=== PATIENT | female | born 1985 | race Caucasian/White ===

== ENCOUNTER → 2020-05-18 10:20 | Outpatient (CLI) | payer OTHER, SELFPAY ==
--- NOTE | ~2020-05-18 | US_ITS ---
EXAMINATION: US pelvic complete w TV EXAM DATE: 05/18/2020 10:54 INDICATION: Dysmenorrhea. TECHNIQUE: Pelvic transabdominal and transvaginal sonogram was performed. There are multiple graysca le and Doppler images available for interpretation. Comparison is made to prior examination from 07/01. FINDINGS: Uterus measures 7.4 x 3.4 x 3.9 cm, is anteverted and morphologically normal. Endometrial stripe measures 4 mm, within normal limits. There is no free pelvic fluid. Right adnexa: The ovary measures 1.7 x 1.7 x 1.4 cm and is morphologically normal. Ovarian vascular f low confirmed. Left adnexa: The ovary measures 1.7 x 1.7 x 1.2 cm and is morphologically normal. Ovarian vascular fl ow confirmed. IMPRESSION: 1. Unremarkable pelvic ultrasound exam. Reviewed, dictated and finalized at location A.
== END ==
PROVIDERS: PCP Family Medicine; Visit Provider Family Medicine
DX: N94.6 Dysmenorrhea, unspecified (principal)
CPT/HCPCS: 76830; 76856

== ENCOUNTER 2023-04-06 00:46 | Day surgery (SDC) | payer OTHER, SELFPAY ==
[2023-03-31 08:33] VITALS: BMI 21.9
--- NOTE | 2023-03-31 08:38 | PC.NURSE ---
Report to the Outpatient Waiting Room, entrance under the green pavilion located off [facility], at time 0600 on date 04/06/23. Planned Procedure Time: 0730. Time changes happen often and if your time is changed the preop area will call you the afternoon before. - You and your visitor will be asked to self-screen and do not enter if you have any COVID symptoms. - A mask is optional within the hospital at this time. Patients may have clear liquids (water, carbonated beverages, clear teas, apple juice) until 3 hours prior to surgery with a maximum of 20 ounces. - No food from midnight until time of surgery Take the following medications with a SIP of water the morning of surgery: BUPROPION DO NOT STOP ANY OF YOUR OTHER PRESCRIPTION MEDICATIONS PRIOR TO SURGERY ?EXCEPT THE FOLLOWING Medications to discontinue per physician: N/A Date to take last dose: N/A Please no make-up, nail vietnamese, hairspray, perfume, deodorant, or body powder the day of surgery. No jewelry (including any body piercings) or valuables the day of surgery, leave them at home. Please take a shower or bath the night before, or the morning of, surgery with an antibacterial soap. Wear comfortable, loose fitting clothing. - Jewelry must be removed prior to entering the operating room. Rings and piercings that are not removed may be cut off. - The hospital will not accept responsibility for valuables. - Please leave all valuables, including medications, at home the day of surgery. If you are going home after surgery, a licensed transportation driver must drive you home. - NO public transportation without another adult if you receive anesthesia. - We recommend that an adult stay with you for 24 hours following discharge. - We also recommend that you do not drive, make important decision, drink alcoholic beverages, or take any drugs that were not prescribed by your health care provider for at least 24 hours after your discharge time. Follow any additional instructions given to you from your surgeon. If you or anyone in your household have experienced Covid symptoms in the past week, please notify your surgeon or the nurse liaison at the phone number below for possible testing. Telephone instructions given to PT - NAE PICHARDO and asked if any additional questions and then verbalized understanding. Patient advised to call surgeon office or pre surgery nurse liaison [phone] if any additional questions.
[2023-04-06] VITALS (9 sets, daily range): BP systolic 102–127; BP diastolic 59–89; PULSE 87–110; RESP 12–20; TEMP 36.3–36.4; O2SAT 97–100
[2023-04-06] MEDS: LACTATED RINGERS 1,000 ML 30 ML IV CONT ×2 (06:30→08:19)
--- NOTE | 2023-04-06 06:54 | WPDANESEPPF ---
Anes - Initial Pre Proc Eval Procedure: Operation Date: 04/06/23 07:30 Proposed Procedures p Bilateral Breast Augmentation - Gurinder Oh MD Date/Time: 04/06/23 06:54 Surgeon: Gurinder Oh MD Pre Op Diagnosis: micromastia Patient Data Age: 37 Gender: F Height: 1.52 m Weight: 50.8 kg Allergies Allergy/AdvReac Type Severity Reaction Status Date / Time codeine Allergy Unknown Rash Verified 03/31/23 08:32 Home Medications Medication Instructions Recorded Confirmed Type bupropion HCl 150 mg 24 hr tablet, 150 mg PO DAILY 03/31/23 03/31/23 History extended release Patient hx anesthesia problems: none Family hx anesthesia problems: none Results Review: All pre-operative results and documents have been reviewed as part of the pre-operative evaluation. FOR[facility]LY [facility] Social History Social History Smoking status: Never smoker Second hand tobacco smoke exposure: No Alcohol intake: current Drinks per week: 2 Substance use: never Substance use type: does not use Living arrangements: with friend(s) Spiritual care concerns: No Anes - Eval Final PreProcedure Day of Procedure 04/06/23 06:54 Patient weight: normal Heart: regular rate and rhythm Lungs: clear to auscultation Airway: Mallampati scale class II Neurological: alert and oriented Last oral intake: >/= 8 hours ASA classification: II Emergent: no Anesthetic plan: proceed Anesthesia type and monitoring: general LMA and standard monitoring Other findings: scop patch propofol inf Results Review: All pre-operative results and documents have been reviewed as part of the pre-operative evaluation. Informed Consent: The patient's anesthetic plan and its attendant risks and benefits were discussed with the patient/family/POA. Questions were solicited and answers provided to the satisfaction of the patient/family/POA.
[2023-04-06] MEDS: SCOPOLAMINE 1.5 MG PATCH TRANSDERM (07:00)
--- NOTE | 2023-04-06 07:04 | WPDHPUPDATE1 ---
History and Physical Update Update Date/Time: 04/06/23 07:04 History and Physical has been reviewed, including an updated exam of the patient. There are NO changes in the patient's condition. She does like a mustafa upper pole look and understands with her natural anatomy she will NOT have as much of this as she desires. She understands she has asymmetric glandular ptosis and what this means. It was explained that she could have a second stage mastopexy (at her expense) if desired; however, this still will not provide as much upper pole fullness as she would like. Risks, benefits, and alternatives have been discussed and questions answered. Patient agrees to proceed with procedure.
--- NOTE | 2023-04-06 07:05 | P.OP_ITS ---
Procedure Note - Detailed Date of Procedure 04/06/23 Pre-op Diagnosis micromastia Post-op Diagnosis Same Procedure Performed Bilateral Augmentation Mammaplasty Surgeon Gurinder Oh MD Anesthesia General Findings Bilateral Gay Chery SoftTouch 330cc implants Right - REF# [id number] SN [id number] Dual Plane 1 Left - REF# [id number] SN [id number] Dual Plane 2 Description of Procedure She is here today for bilateral breast augmentation. Previously and again today the risks, benefits, alternatives were discussed in extensive detail. I wanted her to be very realistic about the risks involved as well as expectations. She does like a mustafa upper pole look and understands with her natural anatomy she will NOT have as much of this as she desires. She understands she has asymmetric glandular ptosis and what this means. It was explained that she c ould have a second stage mastopexy (at her expense) if desired; however, this still will not provide as much upper pole fullness as she would like. We discussed aftercare and what to monitor for. Made sure answered all of her questions to her satisfaction today and consent was obtained. Marked in the preoperative holding area with their verification. The patient was taken to the operating room placed supine on the operating table. Anesthesia was provided by anesthesiology. A surgical time-out was taken. We cleansed the skin and 1% lidocaine and 0.25% Marcaine with epinephrine was used anesthetize as a field block. She was prepped and draped in a standard sterile fashion. Tegaderm nipple Page were placed. A 15 blade used to make an incision along the inframammary fold. Dissection was continued at 45 degree angle until the chest wall as identified. I incised the pectoralis major along its inferior border and completely released the inferior border leaving the medial border intact. I created a subpectoral pocket in the appropriate dimensions based on our preoperative planning for the implant. I then copiously irrigated with saline solution and verified a strict hemostasis. Next the use a triple antibiotic and Betadine containing solution to irrigate the pocket. I washed my gloves with the triple antibiotic and Betadine solution. We washed the implant immediately upon opening it with this solution and only opened it when we needed it. I used implant funnel and no-touch technique. The implant was introduced into the pocket using the funnel. Having verified positioning of the implant this was closed using 2-0 PDS followed by 3-0 Monocryl in a running subcuticular 4-0 Monocryl followed by tissue glue. Fluffs and surgical bra were placed. Patient was awoke and taken to PACU without difficulty. All instrument sponge counts were correct at the end of the case. Estimated Blood Loss 25 Drains No Packing No Pathology None sent Complications No immediate complications Condition Stable Disposition PACU
[2023-04-06] MEDS: ceFAZolin 2 GM/D5W 50 ML 2 GM/50 ML BAG IVPB (07:22)
[2023-04-06] MEDS: TRANEXAMIC ACID 1,000MG/ISO100 1,000 MG/100 ML BAG 200 MG IVPB (07:37)
[2023-04-06] MEDS: NACL 0.9% IRRIG POUR BOTTLE 900 ML, GENTAMICIN SULFATE INJ 160 MG, ceFAZolin 2 GM, POVI... IRRIGATION (07:58)
[2023-04-06] MEDS: LIDO 1%/EPINEPHRINE 1:100,000 50 ML VIAL 30 ML INFILTRATE (08:08)
[2023-04-06] MEDS: BUPivacaine HCL 0.25% PF 30 ML VIAL INFILTRATE (08:08)
[2023-04-06] MEDS: fentaNYL CITRATE INJ (*CRX) 100 MCG/2 ML VIAL 25 MCG IV PUSH ×4 (08:39→09:05)
[2023-04-06] MEDS: oxyCODONE HCL (*CRX) 5 MG TAB IR PO (09:49)
== END 2023-04-06 10:12 | disposition home or self-care (01) ==
PROVIDERS: PCP Family Medicine; Visit Provider Surgery Plastic and Reconstructive Surgery
PROC: (CPT 19325; principal; 2023-04-06 07:30)
DX: Z41.1 Encounter for cosmetic surgery (principal); N64.82 Hypoplasia of breast
CPT/HCPCS: 19325; A9270; J0690; J1100; J1580; J2250; J2405; J2704; J3010; J7120

== ENCOUNTER 2024-11-06 16:57 | Emergency (ER) | payer SELFPAY ==
--- NOTE | 2024-11-06 17:53 | PC.NURSE ---
call x2 no answer
--- OUTSIDE RECORDS SUMMARY | 2024-11-06 18:13 | XMS_ITS | Clinical Summary ---
Author Organization [facility] Address [address] [place] [address] Phone Care Team Providers Care Engineering Faculty Name Role Phone Murali Barron MD Primary Care Provider [phone] Allergies Active Allergy Reactions Criticality Noted Date Comments Codeine Rash Low 10/22/2009 Medications Evening Bessie Oil 500 mg Oral Cap Take by mouth 3 times daily. Active MULTIVITAMINS (MULTIVITAMIN PO) Take by mouth. Active Active Problems Patient Care Coordination No te Formatting of this note migh t be different from the original. 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 Gender Identity Not on file Sexual Orientation Not on file Last Filed Vital Signs Vital Sign Reading Time Taken Comments Blood Pressure 98/74 10/22/2009 10:28 AM FLAT BED OPERATOR Pulse - - Temperature - - Respiratory Rate - - Oxygen Saturation - - Inhaled Oxygen Concentration - - Weight 48.1 kg (106 lb) 10/22/2009 10:28 AM FLAT BED OPERATOR Height 165.1 cm (5' 5 ) 10/22/2009 10:28 AM FLAT BED OPERATOR Body Mass Index 17.64 10/22/2009 10:28 AM FLAT BED OPERATOR Plan of Treatment Health Maintenance Due Date Last Done Comments PNEUMOCOCCAL VACCINE 0-64 YE ARS (1 of 2 - PCV) 1991 DTAP/TDAP/TD VACCINES (1 - Tdap) 2004 HEPATITIS B VACCINES (1 of 3 - 19+ 3-dose series) 2004 CERVICAL CANCER SCREENING 2015 INFLUENZA VACCINE (#1) 2024 HPV VACCINES Aged Out No longer eligi ble based on patient's age to complete this topic Insurance [employer] OPEN ACCESS Care Teams Engineering Faculty Relationship Specialty Start Date End Date Murali Barron MD [address] [place] [address] [address] [place] [address] PCP - General 10/22/09
--- OUTSIDE RECORDS SUMMARY | 2024-11-06 18:13 | XMS_ITS | Data Portability ---
Author Organization [employer], Main Office Address [address] [place] [address] Assessment No assessment recorded. Plan of Treatment Reminders Order Date Submit Date Provider Last Modified By Organization Details Last Modified Time Details Appointments None recorded. Lab None recorded. Referral None recorded. Procedures None recorded. Surgeries None recorded. Imaging None recorded. Medication Orders bupropion HCl XL 150 mg 24 hr tablet, extended release 2022 023 [email or web address] [facility] [address] [facility], [place], [address], 4 17:28:29 triamcinolo ne acetonide 0.1 % topical cream 2023 024 [facility] [address] [facility], [place], [address], 4 12:44:44 clobetasol 0.05 % scalp solution 2023 024 [facility] [address] [facility], [place], [address], 4 12:44:45 Patient TargetsNo targets recorded. Patient InstructionsNo instructions recorded. Reason for Referral None Reported. Problems Name Problem SNOMED Code Status Onset Date Resolution Date Notes Provider Name and Address Organization Details Recorded Time Mixed anxiety and depressive disorder 575081394 Active 023 DELORES Arita [address] [facility] [address], [place], [address] [facility] [employer] 3 07:58:27 Eczema 63257018 Active 024 Kathy Lebron MD [address], [place], [address], [employer] 4 12:43:20 Depressive disorder 57176179 Active 024 Kathy Lebron MD [address], [place], [address], [employer] 4 12:49:06 Problem Notes None recorded. Medical Equipment None Reported. Allergies Allergen ID Allergen Name Allergen Category Reaction Reaction Severity Criticality Documentation Date Start Date Code Code System Note Provider Name and Address Organization Details Recorded Time 02042 codeine medicatio n rash Not available Not available 12/07/2022 2670 RxNorm Not Available [facility] 3 22:07:24 Medications Name Sig Start Date Stop Date Status Note LastModified by Organization Details LastModified Time carisoprodo l 350 mg tablet TAKE 1 TABLET BY MOUTH EVERY 8 HOURS NEEDED FOR PAIN OR MUSCLE SPASMS 08/28 completed Not Available Not Available Not Available medroxyprog esterone 10 mg tablet TAKE 1 TABLET BY MOUTH ONCE DAILY active Not Available Not Available No t Available ondansetron HCl 4 mg tablet TAKE 1 TABLET BY MOUTH EVERY 6 HOURS NEEDED FOR NAUSEA active Not Available Not Available No t Available triamcinolo ne acetonide 0.1 % topical cream APPLY A THIN LAYER TO THE AFFECTED AREA(S) BY TOPICAL ROUTE 2 TIMES PER DAY active Not Available Not Available No t Available oxycodone-a cetaminophe n 5 mg-325 mg tablet TAKE 1 TABLET BY MOUTH EVERY 6 HOURS NEEDED FOR PAIN active Not Available Not Available No t Available amoxicillin 875 mg tablet Take 1 tablet every 12 hours by oral route for 10 days. 08/28 completed Not Available Not Available Not Available clotrimazol e-betametha sone 1 %-0.05 % topical cream APPLY CREAM TO AFFECTED AREA THREE TIMES DAILY DIRECTED active Not Available Not Available No t Available docusate sodium 100 mg capsule TAKE 1 CAPSULE BY MOUTH TWICE DAILY active Not Available Not Available No t Available methylpredn isolone 4 mg tablets in a dose pack TAKE BY MOUTH DIRECTED ON INSIDE OF PACKAGE active Not Available Not Available No t Available clobetasol 0.05 % scalp solution APPLY TO THE AFFECTED SCALP AREA BY TOPICAL ROUTE 2 TIMES PER DAY IN THE MORNING AND EVENING 2023 active Not Available Not Available Not Avai lable escitalopra m 10 mg tablet 1/2 tab po qday with food x 2 weeks then increase to 1 per day 08/28 completed Not Available Not Available Not Available cyclobenzap rine 5 mg tablet 08/28 completed Not Available Not Available Not Available bupropion HCl XL 300 mg 24 hr tablet, extended release TAKE 1 TABLET BY MOUTH ONCE DAILY active Not Available Not Available No t Available bupropion HCl XL 150 mg 24 hr tablet, extended release TAKE 1 TABLET BY MOUTH ONCE DAILY 02/25 completed Not Available Not Available Not Available nitrofurant oin monohydrate /macrocryst als 100 mg capsule 08/28 completed Not Available Not Available Not Available Veronica-D 24 Hour 180 mg-240 mg tablet,exte nded release TAKE 1 TABLET BY MOUTH ONCE DAILY active Not Available Not Available No t Available Vitals Date Recorded Body mass index (BMI) Body height Oxygen saturation Oxygen saturation in Arterial blood by Pulse oximetry Heart rate Body temperature Body weight Systolic blood pressure Diastolic blood pressure Provider Name and Address Organization Details Last Updated DateTime 2 23 kg/m2 152.4 cm 97 % 97 % 113 /min 96.9 [degF] 54102.9 g 118 mm[Hg] 64 mm[Hg] Not Available [facility] 3 22:05:55 Date Recorded Body mass index (BMI) Body height Body weight Provider Name and Address Organization Details Last Updated DateTime 04/15/2022 23 kg/m2 152.4 cm 73628.9 g Not Available [facility] 12/07/2022 22:05:56 Date Recorded Body weight Body temperature Oxygen saturation Oxygen saturation in Arterial blood by Pulse oximetry Heart rate Systolic blood pressure Diastolic blood pressure Provider Name and Address Organization Details Last Updated DateTime 3 45317.1 2 g 97.4 [degF] 98 % 98 % 73 /min 126 mm[Hg] 72 mm[Hg] Bronwyn Romero RN [place] [facility] 3 16:34:44 Date Recorded Body weight Body temperature Heart rate Oxygen saturation Oxygen saturation in Arterial blood by Pulse oximetry Systolic blood pressure Diastolic blood pressure Provider Name and Address Organization Details Last Updated DateTime 4 19446.9 4 g 97.2 [degF] 72 /min 98 % 98 % 116 mm[Hg] 76 mm[Hg] Bronwyn Romero RN [place] - [facility] 4 12:27:39 Social History Question Answer Notes LastModified by [employer] Details LastModified Time Tobacco Smoking Status Never Smoker Not Available [facility] 12/07/2022 22:05:14 What Is Your Level Of Alcohol Consumption? Occasional [id number] Information not available 12/07/2022 If You Are , What Was Your Level Of Alcohol Consumption Prior To ? None [id number] Information not available 12/07/2022 What Is Your Level Of Caffeine Consumption? Moderate [id number] Information not available 12/07/2022 In The 14 Days Before Symptom Onset, Have You Had Close Contact With A Laboratory-confirm ed COVID-19 While That Case Was Ill? No [id number] Information not available 12/07/2022 In The 14 Days Before Symptom Onset, Have You Had Close Contact With A Person Who Is Under Investigation For COVID-19 While That Person Was Ill? No [id number] Information not available 12/07/2022 What Type Of Diet Are You Following? REGULAR [id number] Information not available 12/07/2022 Have You Ever Been Counseled For Unhealthy Alcohol Use? No [id number] Information not available 12/07/2022 Do You Use Any Illicit Or Recreational Drugs? No [id number] Information not available 12/07/2022 Has Tobacco Cessation Counseling Been Provided? No [id number] Information not available 12/07/2022 Do You Have Any Dietary Restrictions? No [id number] Information not available 12/07/2022 Do You Or Have You Ever Used Any Other Forms Of Tobacco Or Nicotine? No [id number] Information not available 12/07/2022 Sex: Unknown Functional Status Question Answer Note LastModified by [employer] Details LastModified Time What is your exercise level? Occasional [id number] Information not available 12/07/2022 Mental Status None recorded. Family History Relationship Description Onset Age of this Age Resolved Age Notes LastModified by Organization Details LastModified Time Father Family history of malignant neoplasm [id number] Not available 12/07/2022 22:05:21 Notes:HTN Medical History No medical history recorded. Gynecological History Statement/Question Response Menses Monthly N Breast Problems no Discharge no Obstetrics History GPAL:G 0 P 0 0 0 0 Past Encounters Encounter ID Performer Location Encounter Start Date Encounter Closed Date Diagnosis/Indication Diagnosis SNOMED-CT Code Diagnosis ICD10 Code Diagnosis Note [id number] [address] [address] 03/18/2022 00:00:00 03/18/2022 17:02:[id number] [address] 04/15/2022 00:00:00 04/15/2022 12:00:25 [id number] WINSTON Britt [address] [address] 08/28/2023 16:28:34 08/28/2023 16:49:21 Mixed anxiety and depressive disorder 460966975 F41.8 -chronic, stable with use of buproprion -pt talks to counselor periodical ly-no need for med changes at this time-refil l of buproprion given [id number] Kathy Lebron MD [address] [address] 01/17/2024 12:22:31 01/17/2024 12:50:46 Eczema 50441794 L30.9 triamcinol one bid on skin and clobetasol bid to scalp prndiscuss ed care of dry, sensitive skinshorte r, cooler showersavo id lotions/so aps/produc ts with perfumes/d yesemollie nt lotions regularlyc all for derm referral if no improvemen t Depressive disorder 4564 7591 F32.A improving but not yet to baselinein crease bupropion xl 150 mg to 2 tabs dailysend update through portal in 4 weeks, if feeling well, will send script for 300 mg, if not, will decrease back down to 150 mg xl daily Health Concerns Section Related Observation LastModified by Organization Detai ls LastModified Time None Recorded Concern Status LastModified by Organization Details LastModified Time None Recorded Advance Directives Directive None Recorded Payers Encounter Date Sequence Insurance Name Policy Number Policy Welch Covered Member ID Welch Member ID Guarantor Name 08/28/[address] [facility] [id number] Kandis Oberkfell [id number] Kandis Mathew Oberkfell 01/17/[address] [facility] [id number] Kandis Oberkfell [id number] Kandis Mathew Oberkfell Notes Date Note Type Note Provider Name and Address Organization Details Recorded Time 08/28/2023 text/html Pt is here for refill of meds WINSTON Britt [address] [address], [place], [address], [employer] 08/28/2023 16:47:15 01/17/2024 text/html Here to f/u on mood and c/o rash she recently developed rash on back of neck-itchy, no new lotions/soaps/pr oducts. Rash is constant x 6 months doing well on bupropion xl 150 but wonders if a higher dose would be better, does not feel she is at baseline. No si/hi. Kathy Lebron MD [address] [facility], [facility] [address], [place], [address], [employer] 02/26/2024 12:59:49 OBGyn Episode No OBEpisode recorded.
== END 2024-11-06 17:53 | disposition left against medical advice (07) ==
PROVIDERS: PCP Family Medicine
DX: Z53.21 Procedure and treatment not carried out due to patient leaving prior to being seen by health care provider (principal)
CPT/HCPCS: 99199

== ENCOUNTER 2024-11-06 18:55 | Emergency (ER) | payer OTHER, SELFPAY ==
[2024-11-06 19:15] VITALS: BP 157/100; PULSE 107; RESP 18; TEMP 36.6; O2SAT 100
--- NOTE | 2024-11-06 21:46 | ED_ITS ---
HPI - Headache General Chief Complaint: Neuro Symptoms/Deficit Stated Complaint: numbness/tingling hands /feet,MÉNDEZ,stiff Time Seen by Provider: 11/06/24 19:23 Source: patient and RN notes reviewed Mode of arrival: ambulatory Limitations: no limitations History of Present Illness HPI Narrative: Patient presents today complaining of left hand and forearm tingling times 5-6 days. Today, she developed tingling and heaviness in the bilateral hands and feet that lasted around 10 minutes at 10:00 a.m.. At 5:00 p.m. she developed a bilateral temporal headache that she describes as intermittent and sharp that was accompanied by fatigue, dizziness, and feeling, ?off. ? Patient states , I never get headaches. She denies vision changes, nausea or vomiting, shortness of breath or chest pain. She took an electrolyte pill, but no other medication for her symptoms today. States she tried the ER prior to arrival but left because it was too busy. Related Data Home Medications ?Medication ?Instructions ?Recorded ?Confirmed ?Last Taken ?Type bupropion HCl 300 mg 24 hr tablet, mg PO 11/06/24 Unknown History extended release Allergies Allergy/AdvReac Type Severity Reaction Status Date / Time codeine Allergy Unknown Rash Verified 11/06/24 19:18 Review of Systems Review of Systems: CONSTITUTIONAL: Denies body aches, fever, chills, or sweats.+ fatigue EYES: Denies visual changes, redness, or discharge. ENT: Denies rhinorrhea, congestion, sore throat, or otalgia. CARDIOVASCULAR: Denies chest pain, palpitations, or edema. RESPIRATORY: Denies cough or dyspnea. GASTROINTESTINAL: Denies abdominal pain, nausea, vomiting, or diarrhea. GENITOURINARY: Denies dysuria or hematuria. SKIN: Denies rash, itching, or wounds. MUSCULOSKELETAL: Denies back pain, joint pain, or myalgia. NEUROLOGIC: + headache, dizziness, numbness and tingling PSYCH: Denies depression or anxiety. [facility] Social History Social History Smoking status: Never smoker Second hand tobacco smoke exposure: No Alcohol intake: current Drinks per week: 2 Substance use: never Substance use type: does not use Living arrangements: with friend(s) Spiritual care concerns: No Comments At time of signature, I have reviewed and agree with nursing past medical, surgical, social and family history unless otherwise noted. Please see nursing chart for further information. There is no relevant family history pertinent to the presenting complaint Exam Narrative: GENERAL: Well-appearing, well-nourished, and in no acute distress. HEAD: Normocephalic, atraumatic. EYES: EOMI. PERRL with photophobia. No redness or drainage. Conjunctivae normal. ENT: Mucous membranes pink and moist. Nares clear. No rhinorrhea. TMs normal bilaterally. Throat normal. Uvula midline. NECK: Normal AROM. Supple. No lymphadenopathy. CHEST: No respiratory distress. Clear to auscultation. HEART: Regular rate and rhythm. No murmur appreciated. EXTREMITIES: Normal range of motion. No edema. SKIN: Warm, dry, no rash. Capillary refill normal. Normal skin turgor. NEURO: No focal deficits. Alert and oriented x3. Gait steady. Neuro exam normal. Left eyebrow is slightly lower than right, but raises with right. Patient has had Botox in the past. She cannot confirm or deny that her eyebrows look the same today as they did yesterday. 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 5/5 strength in BLE PSYCH: Normal affect. No signs of depression or anxiety. Course Course Level of Care: Express Care Visit Vital Signs Vital signs: Vital Signs Temperature 97.8 F 11/06/24 19:15 Pulse Rate 107 H 11/06/24 19:15 Respiratory Rate 18 11/06/24 19:15 Blood Pressure 157/100 H 11/06/24 19:15 Pulse Oximetry 100 11/06/24 19:15 Oxygen Delivery Room Air 11/06/24 19:15 Temperature 97.8 F 11/06/24 19:15 Pulse Rate 107 H 11/06/24 19:15 Respiratory Rate 18 11/06/24 19:15 Blood Pressure 157/100 H 11/06/24 19:15 Pulse Oximetry 100 11/06/24 19:15 Oxygen Delivery Room Air 11/06/24 19:15 Reviewed MDM - Headache MDM Narrative Medical decision making narrative: Due to patient's symptoms, especially the fact that she has a headache that is not normal for her to experience, recommend that she go to the ER for further evaluation and treatment. Patient declines ER transfer medical advice. She is alert and oriented x4, does not seem under the influence of drugs or alcohol at this time, and is able to make her own medical decisions. Risks associated with no further evaluation have been discussed. Differential Diagnosis Differential diagnosis: Likely migraine, tension headache, subarachnoid hemorrhage and other (TIA, electrolyte imbalance, thyroid) Critical Care Time Critical Care Time Critical Care Time: No Discharge Plan Discharge Clinical Impression: Dizziness Headache Qualifiers: Headache type: unspecified Headache chronicity pattern: acute headache Intractability: not intractable Qualified Code(s): R51.9 - Headache, unspecified Patient Disposition: Left Against Medical Advice Condition: Serious Instructions: Acute Headache (DC) Additional Instructions: You have refused ER transfer for further evaluation of your symptoms tonight. Please reconsider going to the ER, especially if symptoms worsen. Your blood pressure was elevated above 120/80 today at Urgent Care. This puts you above the threshold for follow up. Please schedule a followup visit with your personal physician as soon as possible, for further evaluation and treatment. Even blood pressure exceeding 120/80 may indicate pre-hypertension. Patient Language: Yoruba Prescriptions: No Action bupropion HCl 300 mg tablet extended release 24 hr PO Follow-up/Referrals: Vi,Kathy Barrientos MD [Primary Care Provider] - Time of Disposition: 19:46
== END 2024-11-06 19:50 | disposition left against medical advice (07) ==
PROVIDERS: Emergency Provider Nurse Practitioner; PCP Family Medicine
DX: R42 Dizziness and giddiness (principal); R51.9 Headache, unspecified
CPT/HCPCS: 99213; G0463